=== PATIENT | female | born 1990 | race African-American/Black ===

== ENCOUNTER → 2023-03-09 | Outpatient (CLI) | payer BC, SELFPAY ==
[2023-03-09 11:54] LABS: HEMATOCRIT 42.7 % (36.0-47.0); HEMOGLOBIN 13.5 g/dl (12.0-15.5); MEAN CORPUSCULAR HEMOGLOBIN 28.1 pg (27.0-33.0); MEAN CORPUSCULAR HGB CONC 31.6 g/dl (32.0-36.5); MEAN CORPUSCULAR VOLUME 88.8 fl (80.0-96.0); PLATELET COUNT, AUTOMATED 327 10^3/uL (150-450); RED BLOOD COUNT 4.81 10^6/uL (4.00-5.40); WHITE BLOOD COUNT 5.2 10^3/uL (4.0-10.0)
[2023-03-09 12:34] LABS: ALBUMIN 4.1 G/DL (3.2-5.2); ALKALINE PHOSPHATASE 37 U/L (46-116); ALT/SGPT 14 U/L (7.0-40); AST/SGOT 15 U/L (<34); BILIRUBIN,TOTAL 0.7 MG/DL (0.3-1.2); BLOOD UREA NITROGEN 12 MG/DL (9-23); CALCIUM LEVEL 9.3 MG/DL (8.5-10.1); CARBON DIOXIDE LEVEL 29 MMOL/L (20-31); CHLORIDE LEVEL 105 MMOL/L (98-107); CREATININE FOR GFR 0.83 MG/DL (0.55-1.30); GLOMERULAR FILTRATION RATE > 60.0 (>60); GLUCOSE, FASTING 87 MG/DL (60-100); POTASSIUM SERUM 4.4 MMOL/L (3.5-5.1); SODIUM LEVEL 137 MMOL/L (136-145)
[2023-03-09 13:17] LABS: GC DNA AMPLIFICATION NEGATIVE (NEGATIVE)
[2023-03-09 14:44] LABS: HEPATITIS B SURFACE ANTIBODY NEGATIVE (POSITIVE); HIV 1&2 SCREEN NEGATIVE (NEGATIVE)
[2023-03-09 15:00] LABS: HCG, SERUM QUALITATIVE NEGATIVE (NEGATIVE)
== END ==
LOC: M LAB 10:28
PROVIDERS: ATTEND Family Medicine
DX: F11.20 Opioid dependence, uncomplicated (principal)

== ENCOUNTER → 2023-07-02 | Outpatient (CLI) | payer BC, MEDICAID ==
[~2023-07-02] MED LIST: METH5TA PO
== END ==
LOC: M WHC 09:16
PROVIDERS: ATTEND Physician Assistant
DX: N81.2 Incomplete uterovaginal prolapse (principal); N89.8 Other specified noninflammatory disorders of vagina

== ENCOUNTER → 2023-07-14 | Outpatient (CLI) | payer BC, MEDICAID, SELFPAY ==
[2023-07-14 16:06] LABS: HEMATOCRIT 36.8 % (36.0-47.0); HEMOGLOBIN 11.8 g/dl (12.0-15.5); MEAN CORPUSCULAR HEMOGLOBIN 27.9 pg (27.0-33.0); MEAN CORPUSCULAR HGB CONC 32.1 g/dl (32.0-36.5); PLATELET COUNT, AUTOMATED 318 10^3/uL (150-450); RED BLOOD COUNT 4.23 10^6/uL (4.00-5.40); WHITE BLOOD COUNT 6.3 10^3/uL (4.0-10.0)
== END ==
LOC: M PLALAB 12:16
PROVIDERS: ATTEND Specialist
DX: N92.6 Irregular menstruation, unspecified (principal)

== ENCOUNTER 2023-08-03 06:14 | Day surgery (SDC) | payer MEDICAID, SELFPAY ==
[~2023-08-03] VITALS: Ht 162.6 cm; Wt 54.2 kg
[2023-08-03 06:40] LABS: HEMATOCRIT 38.8 % (36.0-47.0); HEMOGLOBIN 12.8 g/dl (12.0-15.5); MEAN CORPUSCULAR HEMOGLOBIN 28.3 pg (27.0-33.0); MEAN CORPUSCULAR VOLUME 85.7 fl (80.0-96.0); PLATELET COUNT, AUTOMATED 331 10^3/uL (150-450); RED BLOOD COUNT 4.53 10^6/uL (4.00-5.40)
[2023-08-03] MEDS ORDERED: ESTROGENS VAGINAL CREAM 30GM As Ordered ONE (07:25)
[2023-08-03] MEDS ORDERED: fentaNYL 100 MCG/2 ML INJECTION As Ordered ONE (07:44)
[2023-08-03] MEDS ORDERED: ONDANSETRON 4MG 2ML VIAL As Ordered ONE (07:44)
[2023-08-03] MEDS ORDERED: propofoL 200 MG/20 ML VIAL As Ordered ONE (07:44)
[2023-08-03] MEDS ORDERED: MIDAZOLAM INJ 2MG/2ML VIAL As Ordered ONE (07:44)
[2023-08-03] MEDS ORDERED: LIDOCAINE 2% 100MG/5ML SDV (FOR ANES.) As Ordered ONE (07:44)
[2023-08-03] MEDS ORDERED: dexmedeTOMIDine (4MCG/ML)200MCG/50ML BTL (PRECEDEX) As Ordered ONE (07:45)
[2023-08-03 08:30] VITALS: BP 120/60; TEMP 98.1; O2SAT 95
[2023-08-03] MEDS ORDERED: BSS IRR 500ML/OMIDRIA 4ML IRR BAG (OR ONLY) As Ordered ONE (10:04)
== END 2023-08-03 08:47 | disposition home or self-care (01) ==
LOC: M SDC 06:14
PROVIDERS: ATTEND Specialist
DX: D25.9 Leiomyoma of uterus, unspecified (principal); N92.6 Irregular menstruation, unspecified; K21.9 Gastro-esophageal reflux disease without esophagitis; Z79.899 Other long term (current) drug therapy; F17.290 Nicotine dependence, other tobacco product, uncomplicated
CPT/HCPCS: 36415; 57500; 81025; 85027; 88304; C1727; J0665; J1100; J2250; J2405; J3010

== ENCOUNTER → 2023-10-07 | Outpatient (CLI) | payer BC, OTHER, SELFPAY ==
[2023-10-07 18:25] LABS: HIV 1&2 SCREEN NEGATIVE (NEGATIVE)
[2023-10-07 18:32] LABS: HEPATITIS B CORE ANTIBODY IGM NEGATIVE (NEGATIVE)
[2023-10-07 19:17] LABS: CHLAMYDIA DNA AMPLIFICATION NEGATIVE (NEGATIVE); GC DNA AMPLIFICATION NEGATIVE (NEGATIVE)
== END ==
LOC: M PLALAB 16:27
PROVIDERS: ATTEND Nurse Practitioner Family
DX: Z11.3 Encounter for screening for infections with a predominantly sexual mode of transmission (principal)

== ENCOUNTER 2024-04-11 06:37 | Emergency (ER) | payer OTHER, SELFPAY ==
[~2024-04-11] VITALS: Ht 162.6 cm; Wt 54.7 kg
[2024-04-11] MEDS: METOCLOPRAMIDE INJ 10MG/2ML VIAL IV ONE (09:13)
[2024-04-11] MEDS: NS 1,000 ML IV ONE (09:13)
[2024-04-11 09:41] LABS: BASO # 0.1 10^3/uL (0.0-0.2); BASO % 0.6 % (0.0-1.0); EOS % 0.2 % (0.0-3.0); HEMOGLOBIN 12.6 g/dl (12.0-15.5); LYMPH # 0.9 10^3/uL (1.5-5.0); LYMPH % 11.1 % (24.0-44.0); MEAN CORPUSCULAR HEMOGLOBIN 29.2 pg (27.0-33.0); MEAN CORPUSCULAR HGB CONC 34.1 g/dl (32.0-36.5); MEAN CORPUSCULAR VOLUME 85.8 fl (80.0-96.0); MONO # 0.5 10^3/uL (0.0-0.8); MONO % 5.4 % (2.0-8.0); NEUTROPHILS # 6.8 10^3/uL (1.5-8.5); NEUTROPHILS % 82.2 % (36.0-66.0); PLATELET COUNT, AUTOMATED 271 10^3/uL (150-450); RED BLOOD COUNT 4.31 10^6/uL (4.00-5.40); WHITE BLOOD COUNT 8.3 10^3/uL (4.0-10.0)
[2024-04-11 10:05] LABS: ALBUMIN 3.6 G/DL (3.2-5.2); ALKALINE PHOSPHATASE 39 U/L (46-116); ALT/SGPT 11 U/L (7.0-40); AST/SGOT < 8 U/L (<34); BILIRUBIN,DIRECT 0.1 MG/DL (<0.4); BILIRUBIN,TOTAL 0.4 MG/DL (0.3-1.2); BLOOD UREA NITROGEN 11 MG/DL (9-23); CALCIUM LEVEL 8.6 MG/DL (8.5-10.1); CARBON DIOXIDE LEVEL 25 MMOL/L (20-31); CHLORIDE LEVEL 104 MMOL/L (98-107); CREATININE FOR GFR 0.62 MG/DL (0.55-1.30); GLOMERULAR FILTRATION RATE > 60.0 (>60); GLUCOSE, FASTING 90 MG/DL (60-100); POTASSIUM SERUM 3.7 MMOL/L (3.5-5.1); SODIUM LEVEL 134 MMOL/L (136-145); TOTAL PROTEIN 6.3 G/DL (5.7-8.2)
[2024-04-11] MEDS ORDERED: PROM12.56 PO (10:37)
[2024-04-11 10:58] VITALS: BP 114/71; TEMP 97.6; O2SAT 99
== END 2024-04-11 11:00 | disposition home or self-care (01) ==
LOC: M ED 06:37
DX: O21.9 Vomiting of pregnancy, unspecified (principal); Z79.899 Other long term (current) drug therapy; Z79.1 Long term (current) use of non-steroidal anti-inflammatories (NSAID); Z3A.00 Weeks of gestation of pregnancy not specified
CPT/HCPCS: 80048; 80076; 81001; 84702; 85025; 87086; 96361; 96374; 99284; J2765

== ENCOUNTER → 2024-05-15 | Outpatient (CLI) | payer OTHER ==
[~2024-05-15] MED LIST changes: +PROM12.56 PO
[2024-05-15 17:57] LABS: HEMATOCRIT 39.1 % (36.0-47.0); MEAN CORPUSCULAR HEMOGLOBIN 28.8 pg (27.0-33.0); MEAN CORPUSCULAR HGB CONC 33.2 g/dl (32.0-36.5); MEAN CORPUSCULAR VOLUME 86.7 fl (80.0-96.0); PLATELET COUNT, AUTOMATED 306 10^3/uL (150-450); RED BLOOD COUNT 4.51 10^6/uL (4.00-5.40); WHITE BLOOD COUNT 9.4 10^3/uL (4.0-10.0)
[2024-05-15 19:55] LABS: HEPATITIS B SURFACE ANTIGEN NEGATIVE (NEGATIVE); HEPATITIS C VIRUS ABY INDEX < 0.02 INDEX (<0.8); HIV 1&2 SCREEN NEGATIVE (NEGATIVE)
[2024-05-15 20:05] LABS: GC DNA AMPLIFICATION NEGATIVE (NEGATIVE)
[2024-05-15 20:58] LABS: GC DNA AMPLIFICATION NEGATIVE (NEGATIVE)
== END ==
LOC: M PLALAB 15:01
PROVIDERS: ATTEND Obstetrics & Gynecology
DX: Z34.91 Encounter for supervision of normal pregnancy, unspecified, first trimester (principal)

== ENCOUNTER 2024-06-05 07:23 | Emergency (ER) | payer OTHER ==
[~2024-06-05] VITALS: Ht 162.6 cm; Wt 57.6 kg
[2024-06-05] MEDS: NS 1,000 ML IV ONE (08:25)
[2024-06-05 08:52] LABS: BASO % 0.5 % (0.0-1.0); EOS # 0.1 10^3/uL (0.0-0.5); EOS % 0.6 % (0.0-3.0); HEMATOCRIT 35.2 % (36.0-47.0); HEMOGLOBIN 12.2 g/dl (12.0-15.5); LYMPH # 0.9 10^3/uL (1.5-5.0); LYMPH % 10.9 % (24.0-44.0); MEAN CORPUSCULAR HEMOGLOBIN 29.5 pg (27.0-33.0); MEAN CORPUSCULAR HGB CONC 34.7 g/dl (32.0-36.5); MONO # 0.4 10^3/uL (0.0-0.8); MONO % 5.3 % (2.0-8.0); NEUTROPHILS # 6.8 10^3/uL (1.5-8.5); NEUTROPHILS % 82.2 % (36.0-66.0); PLATELET COUNT, AUTOMATED 262 10^3/uL (150-450); RED BLOOD COUNT 4.14 10^6/uL (4.00-5.40); WHITE BLOOD COUNT 8.3 10^3/uL (4.0-10.0)
[2024-06-05] MEDS: ONDANSETRON 4MG 2ML VIAL IV ONE (09:14)
[2024-06-05 09:24] LABS: LIPASE 17 U/L (12-53)
[2024-06-05 09:29] LABS: ALBUMIN 2.6 G/DL (3.2-5.2); ALKALINE PHOSPHATASE 27 U/L (46-116); ALT/SGPT 10 U/L (7.0-40); AST/SGOT 15 U/L (<34); BILIRUBIN,DIRECT < 0.1 MG/DL (<0.4); BILIRUBIN,TOTAL 0.3 MG/DL (0.3-1.2); BLOOD UREA NITROGEN < 5 MG/DL (9-23); CALCIUM LEVEL 6.7 MG/DL (8.5-10.1); CARBON DIOXIDE LEVEL 20 MMOL/L (20-31); CHLORIDE LEVEL 112 MMOL/L (98-107); CREATININE FOR GFR 0.46 MG/DL (0.55-1.30); GLOMERULAR FILTRATION RATE > 60.0 (>60); GLUCOSE, FASTING 80 MG/DL (60-100); POTASSIUM SERUM 3.4 MMOL/L (3.5-5.1); SODIUM LEVEL 140 MMOL/L (136-145); TOTAL PROTEIN 5.3 G/DL (5.7-8.2)
[2024-06-05] MEDS ORDERED: ONDA-282 PO (11:28)
[2024-06-05] MEDS ORDERED: FAMO10TA50 PO (11:28)
[2024-06-05 12:14] VITALS: BP 96/64; TEMP 97.8; O2SAT 97
== END 2024-06-05 12:17 | disposition home or self-care (01) ==
LOC: M ED 07:23
DX: O21.9 Vomiting of pregnancy, unspecified (principal); D25.9 Leiomyoma of uterus, unspecified; Z79.83 Long term (current) use of bisphosphonates; Z79.899 Other long term (current) drug therapy; Z3A.14 14 weeks gestation of pregnancy
CPT/HCPCS: 80048; 80076; 81001; 83690; 85025; 93005; 96374; 99284; J2405

== ENCOUNTER → 2024-07-14 | Outpatient (CLI) | payer OTHER ==
[~2024-07-14] MED LIST changes: +FAMO10TA50 PO; +ONDA-282 PO
== END ==
LOC: M WHC 13:11
PROVIDERS: ATTEND Obstetrics & Gynecology
DX: Z34.92 Encounter for supervision of normal pregnancy, unspecified, second trimester (principal)

== ENCOUNTER → 2024-08-30 | Outpatient (CLI) | payer OTHER ==
[2024-08-30 13:59] LABS: GLUCOSE CHALLENGE TEST 1 HOUR 79 MG/DL (LESS THAN 140)
[2024-08-30 14:11] LABS: HEMATOCRIT 34.1 % (36.0-47.0); HEMOGLOBIN 11.3 g/dl (12.0-15.5); MEAN CORPUSCULAR HEMOGLOBIN 30.5 pg (27.0-33.0); MEAN CORPUSCULAR HGB CONC 33.1 g/dl (32.0-36.5); MEAN CORPUSCULAR VOLUME 91.9 fl (80.0-96.0); PLATELET COUNT, AUTOMATED 244 10^3/uL (150-450); RED BLOOD COUNT 3.71 10^6/uL (4.00-5.40)
[2024-08-30 14:34] LABS: HIV 1&2 SCREEN NEGATIVE (NEGATIVE)
[2024-08-30 14:42] LABS: HEPATITIS C VIRUS ABY INDEX < 0.02 INDEX (<0.8)
[2024-08-30 16:52] LABS: GC DNA AMPLIFICATION NEGATIVE (NEGATIVE)
== END ==
LOC: M PLALAB 10:22
PROVIDERS: ATTEND Advanced Practice Midwife
DX: Z34.82 Encounter for supervision of other normal pregnancy, second trimester (principal)

== ENCOUNTER → 2024-11-09 | Outpatient (REF) | payer OTHER | LOC: M LAB REF 11:06 | PROVIDERS: ATTEND Nurse Practitioner Family | DX: Z36.85 Encounter for antenatal screening for Streptococcus B (principal); Z3A.36 36 weeks gestation of pregnancy ==

== ENCOUNTER 2024-12-04 07:25 | Inpatient (IN) | payer MEDICAID, OTHER ==
[2024-12-04] VITALS (42 sets, daily range): BP systolic 102–153; BP diastolic 55–92
[~2024-12-04] VITALS: Ht 162.6 cm; Wt 79.8 kg
[2024-12-04] MEDS ORDERED: TUMS500C PO (07:56)
[2024-12-04] MEDS ORDERED: PENICILLIN G POTASSIUM 5 MU IV 5 MU in DEXTROSE 5% (D5W) MINI-BAG PLU 100 ML IV STA (08:08)
[2024-12-04] MEDS ORDERED: LACTATED RINGER'S 1000 ML IV STA (08:08)
[2024-12-04] MEDS ORDERED: OXYTOCIN DRIP 30 UNITS in IV 1 EA IV PRN (08:10)
[2024-12-04] MEDS ORDERED: CARBOPROST TROMETHAMINE 250 MCG/ML AMP IM PRN (08:10)
[2024-12-04] MEDS ORDERED: LIDOCAINE 1% MDV 20ML VIAL INFIL PRN (08:10)
[2024-12-04] MEDS ORDERED: OXYTOCIN INJ 10UNITS/ML 1ML VIAL IM PRN (08:10)
[2024-12-04] MEDS ORDERED: TRANEXAMIC ACID INJection 1,000 MG in NS 100 ML IV PRN (08:10)
[2024-12-04] MEDS ORDERED: METHYLERGONOVINE MALEATE 0.2MG/ML 1ML VIAL IM PRN (08:10)
[2024-12-04] MEDS: miSOPROStol 50MCG 1/2 TABLET PO SCH (08:39)
[2024-12-04 08:40] LABS: HEMATOCRIT 38.2 % (36.0-47.0); HEMOGLOBIN 12.5 g/dl (12.0-15.5); MEAN CORPUSCULAR HEMOGLOBIN 28.3 pg (27.0-33.0); MEAN CORPUSCULAR HGB CONC 32.7 g/dl (32.0-36.5); MEAN CORPUSCULAR VOLUME 86.4 fl (80.0-96.0); PLATELET COUNT, AUTOMATED 268 10^3/uL (150-450); RED BLOOD COUNT 4.42 10^6/uL (4.00-5.40); WHITE BLOOD COUNT 10.1 10^3/uL (4.0-10.0)
[2024-12-04 09:32] LABS: HIV 1&2 SCREEN NEGATIVE (NEGATIVE)
[2024-12-04] MEDS ORDERED: METH10CO PO (10:44)
[2024-12-04] MEDS ORDERED: PEN G POT 3,000,000 UNIT/50 ML 3,000,000 UNIT in IV 1 EA IV SCH (12:10)
[2024-12-04] MEDS: LR 1,000 ML IV SCH (13:16)
[2024-12-04] MEDS: OXYTOCIN DRIP 30 UNITS in IV 1 EA IV SCH (13:16)
[2024-12-04] MEDS: PENICILLIN G POTASSIUM 5 MU IV 5 MU in DEXTROSE 5% (D5W) MINI-BAG PLU 100 ML IV STA (14:03)
[2024-12-04] MEDS ORDERED: LR 500 ML IV PRN (15:40)
[2024-12-04] MEDS ORDERED: ePHEDrine SULFATE 25 MG/5 ML(5MG/ML) SYRINGE IVP PRN (15:40)
[2024-12-04] MEDS ORDERED: EPIDURAL/PCA KEYS XX PRN (15:40)
[2024-12-04] MEDS ORDERED: NALOXONE INJ 0.4MG/1ML VIAL IV PRN (15:40)
[2024-12-04] MEDS ORDERED: diphenhydrAMINE 50MG/ML VIAL IV PRN (15:40)
[2024-12-04] MEDS: FENTANYL/ROPIVACAINE/NACL BAG 100 ML EPIDURAL SCH (16:27)
[2024-12-04] MEDS: PEN G POT 3,000,000 UNIT/50 ML 3,000,000 UNIT in IV 1 EA IV SCH (18:17)
[2024-12-04] MEDS: CALCIUM CARBONATE 500 MG CHEW U/D PO ONE (19:44)
[2024-12-05 00:07] VITALS: BP 118/59
[2024-12-05 00:36] VITALS: BP 105/58
[2024-12-05 01:06] VITALS: BP 115/61
[2024-12-05] MEDS: ONDANSETRON 4MG 2ML VIAL IV PRN (01:15)
[2024-12-05] MEDS: OXYTOCIN DRIP 30 UNITS in IV 1 EA IV PRN (03:07)
[2024-12-05] MEDS ORDERED: ACETAMINOPHEN 325 MG TAB PO PRN (03:40)
[2024-12-05] MEDS ORDERED: RHOGAM 300MCG (1500IU) INJ IM SCH (03:40)
[2024-12-05] MEDS ORDERED: METHYLERGONOVINE MALEATE 0.2 MG TAB PO PRN (03:40)
[2024-12-05] MEDS ORDERED: OXYTOCIN DRIP 30 UNITS in IV 1 EA IV SCH (03:40)
[2024-12-05] MEDS ORDERED: IBUPROFEN 600MG TAB PO PRN (03:40)
[2024-12-05] MEDS: ACETAMINOPHEN 500 MG TAB PO PRN (04:43)
[2024-12-05] MEDS: IBUPROFEN 800 MG TAB PO PRN (04:44)
[2024-12-05 05:50] VITALS: BP 133/67; O2SAT 98
[2024-12-05] MEDS: METHADONE 10MG TAB PO SCH (08:11)
[2024-12-05] MEDS: PRENATAL VITAMINS CHEWABLE TABLET PO SCH (08:11)
[2024-12-05 18:00] VITALS: BP 115/57; O2SAT 98
[2024-12-05] MEDS: DIBUCAINE 1% OINTMENT 30GM TOP PRN (19:49)
[2024-12-05] MEDS: DOCUSATE SODIUM 100MG CAPSULE PO PRN (21:55)
[2024-12-06 06:00] VITALS: BP 119/70; O2SAT 98
[2024-12-06] MEDS: METHADONE 10MG TAB PO SCH (07:49)
[2024-12-06 18:00] VITALS: BP 127/68; O2SAT 100
[2024-12-06] MEDS: diphenhydrAMINE 25MG CAP PO PRN (20:15)
[2024-12-07 06:00] VITALS: BP 115/67; O2SAT 96
[2024-12-07] MEDS ORDERED: ANUSOL HC CREAM 30GM TOP PRN (08:35)
[2024-12-07] MEDS: MEASLES,MUMPS,RUBELLA VACCINE INJ (MMR-II) SC.IMMUN ONE (09:00)
[2024-12-07] MEDS: HYDROCORTISONE 1% CREAM 30GM TOP ONE (09:35)
[2024-12-07] MEDS: FLUZONE VACCINE TRIVALENT PF(2024-25) 0.5ML SYRINGE IM.IMMUN ONE (12:23)
== END 2024-12-07 12:48 | disposition home or self-care (01) | DRG 560 ==
LOC: M LDI 07:25 → M OBS 12-05 05:48
PROVIDERS: ADMIT Advanced Practice Midwife; ATTEND Advanced Practice Midwife
PROC: 3E033VJ Introduction of Other Hormone into Peripheral Vein, Percutaneous Approach (ICD-10-PCS; 2024-12-04)
PROC: 3E0P7GC Introduction of Other Therapeutic Substance into Female Reproductive, Via Natural or Artificial Opening (ICD-10-PCS; 2024-12-04)
PROC: 10E0XZZ Delivery of Products of Conception, External Approach (ICD-10-PCS; principal; 2024-12-05)
PROC: 0HQ9XZZ Repair Perineum Skin, External Approach (ICD-10-PCS; 2024-12-05)
DX: O69.82X0 Labor and delivery complicated by other cord entanglement, without compression, not applicable or unspecified (principal); O70.0 First degree perineal laceration during delivery; Z37.0 Single live birth; Z3A.40 40 weeks gestation of pregnancy; Z87.891 Personal history of nicotine dependence